=== PATIENT | female | born 1985 | race Hispanic/Latino ===

== ENCOUNTER 2016-12-20 06:49 | Inpatient (IN) | payer OTHER ==
[~2016-12-20] VITALS: Ht 162.6 cm; Wt 108.0 kg
[2016-12-20] VITALS (29 sets, daily range): BP systolic 92–132; BP diastolic 55–80
--- NOTE | 2016-12-20 06:48 | NUR ---
PT TO UNIT VIA WC, WEIGHED, HEIGHT MEASURED, TO ROOM 256, TO BATHROOM TO OBTAIN URINE SPEC, TO BED.
--- NOTE | 2016-12-20 06:57 | NUR ---
EFM APPLIED. PT STATES SHE HAS NOT SEEN MD THIS , DID NOT HAVE MONEY. CHINO 37+ WKS BY REPORTED LMP. DENIES ANY HEALTH PROBLEMS, DENIES ANY SURGERY, 3 PREVIOUS VAG DELIVERIES, WITH NO PROBLEMS.
[2016-12-20 07:09] LABS: URINE BILIRUBIN - DIPSTICK NEGATIVE (NEGATIVE); URINE BLOOD DIPSTICK TRACE-INTACT (NEGATIVE); URINE CLARITY CLEAR; URINE COLOR YELLOW; URINE GLUCOSE - DIPSTICK NEGATIVE (NEGATIVE); URINE KETONE NEGATIVE (NEGATIVE); URINE LEUK ESTERASE NEGATIVE (NEGATIVE); URINE NITRITE - DIPSTICK NEGATIVE (Negative); URINE PROTEIN - DIPSTICK NEGATIVE (NEG-TRACE); URINE UROBILINOGEN - DIPSTICK 0.2 E.U./dL (0.2)
[2016-12-20 07:14] LABS: BARBITURATES NEGATIVE (NEGATIVE); COCAINE NEGATIVE (NEGATIVE); METHADONE NEGATIVE (NEGATIVE); OXCYCODONE NEGATIVE (NEGATIVE); TETRAHYDROCANNABIONOL NEGATIVE (NEGATIVE); TRICYLIC ANTIDEPRESSANTS NEGATIVE (NEGATIVE)
[2016-12-20] MEDS ORDERED: PRE-NATAL PO (07:49)
--- NOTE | 2016-12-20 07:55 | NUR ---
DR MARTELL IN TO SEE PT, VE, ALVARO POSITIVE, PT TO BE ADMITTED.
[2016-12-20 08:37] LABS: ALBUMIN 3.3 g/dL (3.2-5.0); ALKALINE PHOSPHATASE 101 u/l (38-126); ANION GAP 15 (6-22 (CALC)); BILIRUBIN, TOTAL 0.5 mg/dL (0.0-1.4); BUN 11 mg/dL (7-17); BUN/CREATININE RATIO 21 (12-20 (CALC)); CALCIUM 9.4 mg/dL (8.4-10.2); CARBON DIOXIDE 20 mmol/l (22-30); CHLORIDE 108 mmol/l (95-108); CREATININE 0.5 mg/dL (0.5-1.0); GFR > 60 ML/MIN (>=60 (CALC)); GFR FOR AFR.AMER. > 60 ML/MIN (>=60 (CALC)); GLUCOSE 86 mg/dL (65-105); HEMATOCRIT 36.7 % (37.0-47.0); HEMOGLOBIN 12.8 g/dl (12.0-16.0); IMMATURE GRANULOCYTES 0.5 % (0.0-1.0); MEAN CORPUSCULAR HGB 31.4 pG CALC (26.0-32.0); MEAN CORPUSCULAR HGB CONC 34.9 g/L CALC (32.0-36.0); NEUT# 12.03 thou/uL (2.00-7.15); POTASSIUM 3.9 mmol/l (3.5-5.1); RED BLOOD COUNT 4.08 mill/uL (4.20-5.60); RED CELL DISTRI WIDTH 13.7 % (11.5-15.5); SGOT/AST 18 u/l (14-36); SGPT/ALT 31 u/l (9-52); SODIUM 139 mmol/l (137-146); TOTAL PROTEIN 6.7 g/dL (6.3-8.2)
--- NOTE | 2016-12-20 10:00 | NUR ---
OB ULTRASOUND DONE AT BEDSIDE.
--- NOTE | 2016-12-20 11:00 | NUR ---
CONTR FURTHER APART, PT DENIES PAIN.
--- NOTE | 2016-12-20 11:29 | NUR ---
SMALL AMT CLEAR FLUID LEAKING, PT OOB TO VOID 300ML, BACK TO BED, PT SKIN WARM TO TOUCH, TEMP 99.
--- NOTE | 2016-12-20 11:40 | NUR ---
FH 135, UNDULATING PATTERN PT DENIES PAIN, NO BLEEDING. VE BY DR MARTELL, 2, 50%, -2. IUPC APPLIED, FSE APPLIED, SMALL AMT BLOODY SHOW.
--- NOTE | 2016-12-20 11:50 | NUR ---
FH MOD VARIABILITY CATEGORY 1 TRACING.
--- NOTE | 2016-12-20 12:10 | NUR ---
OOZING BLOOD TINGED FLUID.
--- NOTE | 2016-12-20 14:00 | NUR ---
DR MARTELL ON UNIT REVIEWS MONITOR STRIP, ORDER FOR PITOCIN AUGMENTATION.
--- NOTE | 2016-12-20 15:11 | NUR ---
VE DONE, IV PITOCIN STARTED A 1 MILLIUNIT /MIN, EXPALINED TO PT.
--- NOTE | 2016-12-20 16:30 | NUR ---
PT STATES SHE FEELS CONTR STRONGER, PALPATE MOD.
--- NOTE | 2016-12-20 17:06 | NUR ---
[facility] DONE, PT TO SIDE, RATES CONTR PAIN AT 5. TOLERATES CONTR WITH SLOW BRT.
--- NOTE | 2016-12-20 17:30 | NUR ---
PT TO COMMODE TO VOID, STANDS BY BED.
--- NOTE | 2016-12-20 18:40 | NUR ---
VE BY DR PEARCE, [facility] HAS MOVED OUT OF PLACE, PLAN TO DO EXTERNAL UC MONITRO. PT MEDICATED FOR PAIN WITH NUBAIN, EFFECTS EXPLAINED TO PT. PT MOVED TO [facility] VIA BED.
--- NOTE | 2016-12-20 18:50 | NUR ---
REPORT TO ONCOMING NURSE IN ROOM.
--- NOTE | 2016-12-20 19:29 | NUR ---
RN speaking some sami with pt and her spouse, Pt speaking some Pashto and utilizing [employer]late - understanding going very well. Dr. Bustamante in to check on pt, RN relayed need to remove IUPC since it was part way out and not picking up correctly, Contractions tracing well with external. RN relayed pt has had 3 doses of PCN, next one due at 2030, pt tells DrSav she is not yet feeling vaginal pressure.
--- NOTE | 2016-12-20 20:06 | NUR ---
Dr. Bustamante present on the unit in the operating room, informed pt is /-1
--- NOTE | 2016-12-20 20:23 | NUR ---
pt voided approx 300ml on towel, estimated by weight. PCN 2.5 million units infusing, dose #4
--- NOTE | 2016-12-20 21:13 | NUR ---
2049 Dr. Bustamante in [facility] [id number]/-1, started pushing with patient re: variable decelerations. 2099 pt turned to left side, variables improved, pt not pushing effectively. 2109 pt resting, doing small pushes on her own
[2016-12-21] VITALS (7 sets, daily range): BP systolic 95–119; BP diastolic 54–68
[2016-12-21 00:12] LABS: HEMATOCRIT 36.9 % (37.0-47.0); HEMOGLOBIN 12.5 g/dl (12.0-16.0)
--- NOTE | 2016-12-21 00:30 | NUR ---
Pt awake and baby, RN discussed taking vital signs when pt moves baby to other breast.
--- NOTE | 2016-12-21 01:01 | NUR ---
2128 Summer Gallegos RN in to translate because pt not pushing effectively. 2130 pitocin turned off. Pt pushing more effectively with coaching of open glottis. Pt straight catherized with red rubber for 300 ml dark urine. 2135 compound left hand and tight nucal cord x 1. 2212 call to O.R. personnel re: placenta will not deliver 2214 CORBY Aguilera and JANIE Cobian on unit obtaining consents and preparing pt for O.R. with Kia Gallegos RN translating. 2235 pt to O.R. via birthing bed. Placenta delivered at 2248 per [employer] Dr. Bustamante stated partial placenta acreta. pt transferred to post room at 2320 via post bed by Bj Pizano RN and Cary Packer RN pt awake and oriented x 3.
--- NOTE | 2016-12-21 01:10 | NUR ---
Baby still on right side, RN assisted pt to move baby to left breast, VS taken and BP low. Fundus firm at umbilicus, bleeding moderate rubra, will continue to monitor.
[2016-12-21 05:31] LABS: HEMATOCRIT 33.1 % (37.0-47.0); HEMOGLOBIN 11.2 g/dl (12.0-16.0); IMMATURE GRANULOCYTES 0.6 % (0.0-1.0); MEAN CELL VOLUME 90.4 fL CALC (80.0-100.0); MEAN CORPUSCULAR HGB 30.6 pG CALC (26.0-32.0); MEAN CORPUSCULAR HGB CONC 33.8 g/L CALC (32.0-36.0); NEUT# 14.82 thou/uL (2.00-7.15); RED BLOOD COUNT 3.66 mill/uL (4.20-5.60); RED CELL DISTRI WIDTH 13.5 % (11.5-15.5)
--- NOTE | 2016-12-21 07:00 | NUR ---
PT LAYING IN BED, ASSESSMENT AND VS DONE, STABLE. WILL MEDICATE WITH MOTRIN FOR CRAMPING PAIN. [facility]AY[place]OD EMPTIED FOR 150ML OF DARK YELLOW URINE. DISCUSSED PLAN OF CARE WITH PT, PT VERBALIZED UNDERSTANDING. DENIES ANY NEEDS.
--- NOTE | 2016-12-21 07:45 | NUR ---
DR. MARTELL AT BEDSIDE, PT C/O CHILLS, TEMP IS 99.8. NEW ORDERS RECEIVED.
--- NOTE | 2016-12-21 08:12 | NUR ---
CBC AND 1ST SET OF BLOOD CULTURES DONE AT THIS TIME FROM RIGHT AC.
--- NOTE | 2016-12-21 08:15 | NUR ---
UA COLLECTED FROM [facility] PER ORDER.
--- NOTE | 2016-12-21 08:20 | NUR ---
HAYWOOD REMOVED AT THIS TIME.
--- NOTE | 2016-12-21 08:23 | NUR ---
LR BOLUS STARTED AT THIS TIME PER ORDER.
--- NOTE | 2016-12-21 08:30 | NUR ---
2ND SET OF BLOOD CULTURES DONE AT THIS TIME FROM LEFT AC.
[2016-12-21 08:51] LABS: HEMATOCRIT 32.6 % (37.0-47.0); HEMOGLOBIN 11.1 g/dl (12.0-16.0); IMMATURE GRANULOCYTES 0.4 % (0.0-1.0); MEAN CELL VOLUME 91.3 fL CALC (80.0-100.0); MEAN CORPUSCULAR HGB 31.1 pG CALC (26.0-32.0); NEUT# 12.63 thou/uL (2.00-7.15); RED BLOOD COUNT 3.57 mill/uL (4.20-5.60); RED CELL DISTRI WIDTH 13.6 % (11.5-15.5)
--- NOTE | 2016-12-21 09:55 | NUR ---
PT SITTING UP IN BED, HAS SHOWERED, VOIDED TWICE AND HAD BM. STATES SHE FEELS "MUCH BETTER". BED LINENS CHANGED. PT DENIES ANY NEEDS AT THIS TIME.
--- NOTE | 2016-12-21 12:00 | NUR ---
PT SITTING UP, EATING LUNCH, DENIES PAIN. VS DONE, TEMP IS 99.9, DENIES FEELING CHILLS. WILL MONITOR. FAMILY AT BEDSIDE.
--- NOTE | 2016-12-21 13:35 | NUR ---
Received report from Magda (nurses), for which the patient is in no acute distress but on vital signs every four hours; marcia. observing for fevers. Patient is sitting up in bed, smiling, talkative, and cooperative with care. Her daughter is holding the baby, and the younger brothers are in the room next to their mom (Chani). Patient denies being in any pain or discomfort at this time. States that the room feels a little warm, so the air conditioner adjusted a little lower and fan turned-on. Will continue to monitor patient throughout the remaining shift. Call light within reach, bed low, head of bed elevated to 45 degrees, and upper side rails up.
--- NOTE | 2016-12-21 15:25 | NUR ---
Patient up to void and perform pericare. Denies being in any pain or discomfort at this time. Patient's daughter, 13 y.o., is interacting with the infant by holding the baby, giving her a bottle, and provided a re-demonstration of use of bulb-syringe. Mom Chani is asking to hold the baby and giving her the bottle to feed her baby. Positive bonding observed. Continue to monitor patient and infant. Call light within reach. Instructed to call for nursing assistance as needed.
--- NOTE | 2016-12-21 16:00 | NUR ---
VS: 98.6 tympanic - 81-20; respirations even and unlabored. BP: 113/68 left arm. Denies being in any pain or discomfort. Instructed patient to call for assistance as needed.
--- NOTE | 2016-12-21 18:00 | NUR ---
Patient received the [employer]ourmet Meal for both her and her . Voices no complaints. Family all together. Fresh water provided for patient.
--- NOTE | 2016-12-21 19:10 | NUR ---
Report given to on-coming shift, nurse JANIE Mac. Patient's condition remains unchanged.
--- NOTE | 2016-12-21 19:56 | NUR ---
REPORT RECEIVED FROM JANIE GONZALEZ. PT. SITTING UP IN BED CONVERSING WITH VISITING FAMILY MEMBERS. NO APPARENT DISCOMFORT AT THIS TIME.
--- NOTE | 2016-12-22 02:27 | NUR ---
PT. RESTING. NO COMPLAINT OF DISCOMFORT.AFEBRILE. LOCHIA LIGHT-MODERATE.
[2016-12-22 04:09] VITALS: BP 110/60
--- NOTE | 2016-12-22 06:21 | NUR ---
PT. SLEPT WELL THROUGH THE NIGHT. WATCHED TIGER VIDEOS PRIOR TO GOING TO SLEEP.DENIES DISCOMFORT THIS AM.
--- NOTE | 2016-12-22 07:00 | NUR ---
PT AT THIS TIME, DENIES ANY NEEDS.
--- NOTE | 2016-12-22 08:00 | NUR ---
DR. MARTELL AT BEDSIDE AT THIS TIME.
[2016-12-22 08:37] VITALS: BP 112/65
--- NOTE | 2016-12-22 08:37 | NUR ---
VS AND ASSESSMENT DONE, STABLE, DENIES ANY PAIN. DISCUSSED PLAN OF CARE WITH PT, PT VERBALIZED UNDERSTANDING.
[2016-12-22] MEDS ORDERED: IBUPROFEN600 MG PO (10:12)
[2016-12-22] MEDS ORDERED: KEFLEX500 MG PO (10:13)
--- NOTE | 2016-12-22 10:42 | NUR ---
DISCHARGE INSTRUCTIONS GIVEN TO PT, INCLUDING WHEN TO FOLLOW UP WITH MD. RX FOR KEFLEX AND MOTRIN GIVEN. TDAP VACCINE GIVEN WELL. ALL QUESTIONS ANSWERED. PT VERBALIZED UNDERSTANDING.
--- NOTE | 2016-12-22 13:35 | NUR ---
PT DISCHARGED HOME WITH FAMILY MEMBERS, IN STABLE CONDITION, VIA WHEELCHAIR.
== END 2016-12-22 13:35 | disposition home or self-care (01) | DRG 767 ==
LOC: OBOP 06:49 → OB 06:49 → OBOP 07:54 → OB 07:55
PROVIDERS: ADMIT Obstetrics & Gynecology; ATTEND Obstetrics & Gynecology
PROC: 10E0XZZ Delivery of Products of Conception, External Approach (ICD-10-PCS; principal; 2016-12-20)
PROC: 10D17ZZ Extraction of Products of Conception, Retained, Via Natural or Artificial Opening (ICD-10-PCS; 2016-12-20)
DX: O73.0 Retained placenta without hemorrhage (principal); Z37.0 Single live birth; Z3A.37 37 weeks gestation of pregnancy
CPT/HCPCS: J2540

== ENCOUNTER 2022-08-11 14:13 | Inpatient (IN) | payer SELFPAY ==
[~2022-08-11] VITALS: Ht 162.6 cm; Wt 111.7 kg
[2022-08-11] VITALS (65 sets, daily range): BP systolic 86–128; BP diastolic 41–83
[~2022-08-11 14:13] MED LIST: IBUPROFEN600 MG PO; KEFLEX500 MG PO; PRE-NATAL PO
[2022-08-11 15:16] LABS: BASO% 0.5 % (0-3); EOS% 3.6 % (0-8); IMMATURE GRANULOCYTES 0.1 % (0.0-5.0); LYMPH% 35.8 % (15-41); MEAN CELL VOLUME 89.8 fL CALC (80.0-100.0); MEAN CORPUSCULAR HGB CONC 32.3 g/dL CAL (32.0-36.0); MONO% 6.7 % (2-13); NEUT# 5.83 thou/uL (2.00-7.15); NEUT% 53.3 % (42-76); RED BLOOD COUNT 5.28 mill/uL (4.20-5.60); RED CELL DISTRI WIDTH 12.5 % (11.5-15.5)
[2022-08-11 15:17] LABS: HEMATOCRIT 47.4 % (37.0-47.0); HEMOGLOBIN 15.3 g/dl (12.0-16.0)
[2022-08-11 15:22] LABS: ALKALINE PHOSPHATASE 77 u/l (38-126); ANION GAP 13 (6-22 (CALC)); BILIRUBIN, TOTAL 0.5 mg/dL (0.02-1.3); BUN 15 mg/dL (7-17); BUN/CREATININE RATIO 22 (12-20 (CALC)); CARBON DIOXIDE 20 mmol/l (22-30); CHLORIDE 110 mmol/l (95-108); CREATININE 0.7 mg/dL (0.5-1.0); GFR FOR AFR.AMER. > 60 ML/MIN (>=60 (CALC)); GFR OTHER RACES > 60 ML/MIN (>=60 (CALC)); POTASSIUM 3.9 mmol/l (3.5-5.1); SODIUM 139 mmol/l (137-146); TOTAL PROTEIN 7.7 g/dL (6.3-8.2)
[2022-08-11 15:23] LABS: ALBUMIN 4.2 g/dL (3.2-5.0); SGOT/AST 34 u/l (14-36)
[2022-08-11 15:53] LABS: TSH, 3RD GENERATION 1.32 uIU/mL (0.47 - 4.68)
[2022-08-12] VITALS (26 sets, daily range): BP systolic 98–130; BP diastolic 62–86
[2022-08-12 05:18] LABS: BASO% 0.5 % (0-3); EOS% 4.8 % (0-8); IMMATURE GRANULOCYTES 0.1 % (0.0-5.0); LYMPH% 41.2 % (15-41); MEAN CELL VOLUME 90.9 fL CALC (80.0-100.0); MEAN CORPUSCULAR HGB 28.8 pG CALC (26.0-32.0); MEAN CORPUSCULAR HGB CONC 31.7 g/dL CAL (32.0-36.0); MONO% 6.5 % (2-13); NEUT# 3.88 thou/uL (2.00-7.15); NEUT% 46.9 % (42-76); RED BLOOD COUNT 4.62 mill/uL (4.20-5.60); RED CELL DISTRI WIDTH 12.8 % (11.5-15.5)
[2022-08-12 05:27] LABS: HEMOGLOBIN 13.3 g/dl (12.0-16.0)
[2022-08-12 05:36] LABS: ALBUMIN 3.5 g/dL (3.2-5.0); ALKALINE PHOSPHATASE 53 u/l (38-126); ANION GAP 9 (6-22 (CALC)); BILIRUBIN, TOTAL 0.6 mg/dL (0.02-1.3); BUN 10 mg/dL (7-17); BUN/CREATININE RATIO 16 (12-20 (CALC)); CARBON DIOXIDE 23 mmol/l (22-30); CHLORIDE 111 mmol/l (95-108); CREATININE 0.6 mg/dL (0.5-1.0); GFR FOR AFR.AMER. > 60 ML/MIN (>=60 (CALC)); GFR OTHER RACES > 60 ML/MIN (>=60 (CALC)); POTASSIUM 3.8 mmol/l (3.5-5.1); SGOT/AST 21 u/l (14-36); SODIUM 139 mmol/l (137-146); TOTAL PROTEIN 6.3 g/dL (6.3-8.2)
[2022-08-12] MEDS ORDERED: TOPROL XL25 MG PO (11:54)
== END 2022-08-12 12:41 | disposition home or self-care (01) | DRG 897 ==
LOC: ED 14:13 → ED-I 16:36 → ED 16:48 → ICU 16:49
PROVIDERS: Family Medicine; ADMIT Internal Medicine; ATTEND Internal Medicine
PROC: 5A2204Z Restoration of Cardiac Rhythm, Single (ICD-10-PCS; principal; 2022-08-11)
DX: F15.988 Other stimulant use, unspecified with other stimulant-induced disorder (principal); I47.1 Supraventricular tachycardia